=== PATIENT | female | born 1955 | race Caucasian/White ===

== ENCOUNTER 2017-09-23 16:26 | Emergency (ER) | payer MEDICARE ==
[~2017-09-23] VITALS: Ht 160 cm; Wt 117.9 kg
[2017-09-23 16:38] VITALS: BP 118/76; PULSE 82; RESP 16; TEMP 97.5; O2SAT 96
[2017-09-23] MEDS ORDERED: JANT2.5T PO (17:05)
[2017-09-23] MEDS ORDERED: JANT5TAB PO (17:05)
[2017-09-23] MEDS ORDERED: LISI10TA3 PO (17:06)
[2017-09-23] MEDS ORDERED: SODIUM CHLORIDE 0.9% FLUSH 10 ML FLUSH IVF PRN (17:15)
[2017-09-23] MEDS ORDERED: MECLIZINE HCL 25 MG TAB PO ONE (17:15)
[2017-09-23] MEDS ORDERED: ONDANSETRON HCL 4 MG/2 ML VIAL IVP ONE (17:15)
[2017-09-23 17:33] VITALS: RESP 16; O2SAT 97
[2017-09-23 17:47] LABS: AUTOMATED NEUTROPHIL # 7.4 TH/MM3 (1.8-7.7); BASOPHIL # 0.1 TH/MM3 (0-0.2); BASOPHIL % 0.9 % (0.0-2.0); EOSINOPHIL # 0.3 TH/MM3 (0-0.4); EOSINOPHIL % 2.8 % (0.0-4.0); HEMOGLOBIN 14.6 GM/DL (11.6-15.3); LYMPH % 21.2 % (9.0-44.0); LYMPHOCYTE # 2.4 TH/MM3 (1.0-4.8); MEAN CELL VOLUME 82.1 FL (80.0-100.0); MEAN CORPUSCULAR HEMOGLOBIN 26.7 PG (27.0-34.0); MEAN CORPUSCULAR HGB CONC 32.5 % (32.0-36.0); MEAN PLATELET VOLUME 7.7 FL (7.0-11.0); MONO % 8.4 % (0.0-8.0); MONOCYTE # 0.9 TH/MM3 (0-0.9); NEUT % 66.7 % (16.0-70.0); PLATELET COUNT 330 TH/MM3 (150-450); RED BLOOD COUNT 5.48 MIL/MM3 (4.00-5.30); RED CELL DISTRIBUTION WIDTH 13.1 % (11.6-17.2); WHITE BLOOD COUNT 11.1 TH/MM3 (4.0-11.0)
[2017-09-23 17:48] LABS: CHLORIDE 108 MEQ/L (98-107); SODIUM (NA) 140 MEQ/L (136-145)
[2017-09-23 17:51] LABS: ALBUMIN 3.3 GM/DL (3.4-5.0); BICARBONATE 26.8 MEQ/L (21.0-32.0); CALCIUM 8.9 MG/DL (8.5-10.1); GLUCOSE,RANDOM 91 MG/DL (74-106); INTERNATIONAL NORMALIZED RATIO 1.3 RATIO; PROTHROMBIN TIME - PATIENT 12.8 SEC (9.8-11.6)
[2017-09-23 17:52] LABS: BLOOD UREA NITROGEN 14 MG/DL (7-18)
[2017-09-23 17:54] LABS: ALT (GPT) 22 U/L (10-53)
[2017-09-23 17:55] LABS: AST (GOT) 19 U/L (15-37); CREATININE 0.77 MG/DL (0.50-1.00); GLOMERULAR FILTRATION RATE 76 ML/MIN (>89)
[2017-09-23 17:56] LABS: TOTAL BILIRUBIN ADULT 0.1 MG/DL (0.2-1.0); TOTAL PROTEIN 7.4 GM/DL (6.4-8.2)
[2017-09-23 17:57] LABS: ALKALINE PHOSPHATASE 100 U/L (45-117)
[2017-09-23 17:59] LABS: TROPONIN I LESS THAN 0.02 NG/ML (0.02-0.05)
--- NOTE | 2017-09-23 18:20 | RADRPT ---
EXAM DATE/TIME: 09/23/2017 18:01 [place] COMPARISON: No previous studies available for comparison. INDICATIONS : Dizziness. Fall. Right occipital pain. RADIATION DOSE: 57.07 CTDIvol (mGy) MEDICAL HISTORY : Hypertension. Gastroesophageal reflux disease. Anticoagulant therapy. SURGICAL HISTORY : Femoral bypass. ENCOUNTER: Initial ACUITY: 1 day PAIN SCALE: 5/10 LOCATION: Right occipital TECHNIQUE: Multiple contiguous axial images were obtained of the head. Using automated exposure control and adj ustment of the mA and/or kV according to patient size, radiation dose was kept as low as reasonably a chievable to obtain optimal diagnostic quality images. DICOM format image data is available electro nically for review and comparison. FINDINGS: CEREBRUM: The ventricles are normal for age. No evidence of midline shift, mass lesion, hemorrhage or acute in farction. No extra-axial fluid collections are seen. POSTERIOR FOSSA: The cerebellum and brainstem are intact. The 4th ventricle is midline. The cerebellopontine angle i s unremarkable. EXTRACRANIAL: The visualized portion of the orbits is intact. SKULL: The calvaria is intact. No evidence of skull fracture. CONCLUSION: No acute intracranial abnormality. Pablo Kumar MD on September 23, 2017 at 18:17 Board Certified Radiologist. This report was verified electronically.
[2017-09-23] MEDS ORDERED: MECL-62 PO (18:38)
[2017-09-23] MEDS ORDERED: ZOFR4TAB3 SL (18:38)
--- NOTE | 2017-09-23 18:39 | PD ---
HPI Chief Complaint: Head Injury Time Seen by Provider: 16:48 Travel History International Travel<30 days: No Contact w/Intl Traveler<30days: No Traveled to known affect area: No History of Present Illness HPI Patient is a 61-year-old female who comes in complaining of dizziness. She says Saturday she was cleaning the bathroom when she slipped and fell backwards onto her head. She denies any loss of consciousness. She says since then she has been feeling very dizzy. She describes it as an unsteadiness on her feet. She says it did get a little bit better Saturday and Saturday, got worse again today. She does take Coumadin for factor V Leiden disease. She says she did not take it Saturday and Saturday because she was worried after hitting her head. She did take a dose this morning and then the dizziness got worse. She says she had an episode of vertigo several years ago, but does not really remember how it felt. She denies chest pain or shortness of breath. She denies fever chills. Severity is mild to moderate. PFSH Past Medical History Hx Anticoagulant Therapy: Yes Diminished Hearing: No GERD: Yes Hypertension: Yes Medical other: Yes (factor 5) Musculoskeletal: Yes (bursitis) Immunizations Current: Yes Tetanus Vaccination: Unknown Influenza Vaccination: No ?: Not Past Surgical History Other Surgery: Yes (stents left leg breast reduction femoral bypass) Social History Alcohol Use: Yes Tobacco Use: No Substance Use: No Allergies-Medications (Allergen,Severity, Reaction): Coded Allergies: Iodinated Contrast- Oral and IV Dye (Verified Allergy, Severe, 09/23/17) enoxaparin (Verified Allergy, Severe, 09/23/17) spasms Tetanus Vaccines and Toxoid (Verified Allergy, Unknown, 09/23/17) cefadroxil (Verified Allergy, Unknown, rash, 09/23/17) dicloxacillin (Verified Allergy, Unknown, rash, 09/23/17) epinephrine (Verified Allergy, Unknown, 09/23/17) Reported Meds & Prescriptions Reported Meds & Active Scripts Active Reported Lisinopril 10 Mg Tab 10 Mg PO DAILY Jantoven (Warfarin) 2.5 Mg Tab 2.5 Mg PO QOD Jantoven (Warfarin) 5 Mg Tab 5 Mg PO QOD Review of Systems Except as stated in HPI: all other systems reviewed are Neg General / Constitutional: No: Fever, Chills Eyes: No: Blurred Vision HENT: Positive: Lightheadedness, No: Headaches Cardiovascular: No: Chest Pain or Discomfort Respiratory: No: Shortness of Breath Gastrointestinal: No: Nausea, Vomiting Musculoskeletal: No: Myalgias, Edema Skin: No Rash, No Change in Pigmentation Neurologic: Positive: Dizziness Physical Exam Narrative GENERAL: Awake and alert, no acute distress. SKIN: Focused skin assessment warm/dry. HEAD: Atraumatic. Normocephalic. EYES: Pupils equal and round and reactive. No scleral icterus. Extraocular movements intact. ENT: Mucous membranes pink and moist. NECK: Trachea midline. No JVD. No cervical spine tenderness. CARDIOVASCULAR: Regular rate and rhythm. No murmur appreciated. RESPIRATORY: No accessory muscle use. Clear to auscultation. Breath sounds equal bilaterally. GASTROINTESTINAL: Abdomen soft, non-tender, nondistended. MUSCULOSKELETAL: No obvious deformities. No clubbing. No cyanosis. No edema. NEUROLOGICAL: Awake and alert. No obvious cranial nerve deficits. Motor grossly within normal limits. Normal speech. PSYCHIATRIC: Appropriate mood and affect; insight and judgment normal. Data Data Last Documented VS Vital Signs Date Time Temp Pulse Resp B/P (MAP) Pulse Ox O2 Delivery O2 Flow Rate FiO2 09/23/17 17:33 16 97 Room Air 09/23/17 16:38 97.5 82 118/76 (90) Orders Orders Electrocardiogram (09/23/17 17:06) Complete Blood Count With Diff (09/23/17 17:06) Comprehensive Metabolic Panel (09/23/17 17:06) Troponin I (09/23/17 17:06) Act Partial Throm Time (Ptt) (09/23/17 17:06) Prothrombin Time / Inr (Pt) (09/23/17 17:06) Ct Brain W/O Iv Contrast(Rout) (09/23/17 17:06) Ecg Monitoring (09/23/17 17:06) Iv Access Insert/Monitor (09/23/17 17:06) Oximetry (09/23/17 17:06) Meclizine (Antivert) (09/23/17 17:15) Ondansetron Inj (Zofran Inj) (09/23/17 17:15) Sodium Chloride 0.9% Flush (Ns Flush) (09/23/17 17:15) Labs Laboratory Tests Test 09/23/17 17:20 White Blood Count 11.1 TH/MM3 Red Blood Count 5.48 MIL/MM3 Hemoglobin 14.6 GM/DL Hematocrit 45.0 % Mean Corpuscular Volume 82.1 FL Mean Corpuscular Hemoglobin 26.7 PG Mean Corpuscular Hemoglobin Concent 32.5 % Red Cell Distribution Width 13.1 % Platelet Count 330 TH/MM3 Mean Platelet Volume 7.7 FL Neutrophils (%) (Auto) 66.7 % Lymphocytes (%) (Auto) 21.2 % Monocytes (%) (Auto) 8.4 % Eosinophils (%) (Auto) 2.8 % Basophils (%) (Auto) 0.9 % Neutrophils # (Auto) 7.4 TH/MM3 Lymphocytes # (Auto) 2.4 TH/MM3 Monocytes # (Auto) 0.9 TH/MM3 Eosinophils # (Auto) 0.3 TH/MM3 Basophils # (Auto) 0.1 TH/MM3 CBC Comment DIFF FINAL Differential Comment Prothrombin Time 12.8 SEC Prothromb Time International Ratio 1.3 RATIO Activated Partial Thromboplast Time 28.6 SEC Blood Urea Nitrogen 14 MG/DL Creatinine 0.77 MG/DL Random Glucose 91 MG/DL Total Protein 7.4 GM/DL Albumin 3.3 GM/DL Calcium Level 8.9 MG/DL Alkaline Phosphatase 100 U/L Aspartate Amino Transf (AST/SGOT) 19 U/L Alanine Aminotransferase (ALT/SGPT) 22 U/L Total Bilirubin 0.1 MG/DL Sodium Level 140 MEQ/L Potassium Level 4.1 MEQ/L Chloride Level 108 MEQ/L Carbon Dioxide Level 26.8 MEQ/L Anion Gap 5 MEQ/L Estimat Glomerular Filtration Rate 76 ML/MIN Troponin I LESS THAN 0.02 NG/ML MDM Medical Decision Making Medical Screen Exam Complete: Yes Emergency Medical Condition: Yes Interpretation(s) ECG shows normal sinus rhythm at a rate of 83, no ST elevation or depression, normal intervals Differential Diagnosis Vertigo versus ICH versus concussion versus electrolyte abnormality versus dehydration Narrative Course Patient is a 61-year-old female who comes in complaining of dizziness. Exam shows no neurologic abnormalities. IV established, labs sent. Labs show no acute abnormalities. CT head performed shows no acute abnormalities. Last [address] 09/23/17 [id number] Signed Impressions: Service Date/Time: Saturday, September 23, 2017 18:01 - CONCLUSION: No acute intracranial abnormality. Pablo Kumar MD Patient given Zofran and meclizine. She says she is feeling better. She will be discharged with prescriptions from meclizine and Zofran. Advised to follow- up with her doctor. Advised to drink plenty of fluids. Advised return anytime for any worsening symptoms. Diagnosis Primary Impression: Dizziness Patient Instructions: Dizziness (ED), General Instructions Additional Instructions: Take meclizine as needed for dizziness and Zofran as needed for nausea. Follow- up with your doctor. Return to the ED as needed for any worsening symptoms. Scripts Meclizine (Meclizine) 25 Mg Tab 25 MG PO TID Y for VERTIGO, #15 TAB 0 Refills Prov: Cesilia Pollock MD 09/23/17 Ondansetron Odt (Zofran Odt) 4 Mg Tab 4 MG SL Q6HR Y for Nausea/Vomiting, #12 TAB 0 Refills Prov: Cesilia Pollock MD 09/23/17 Disposition: DISCHARGE HOME Condition: Stable Cesilia Pollock MD Sep 23, 2017 18:39
[2017-09-23 18:47] VITALS: BP 201/99
--- NOTE | 2017-09-23 21:57 | EKG ---
Date Performed: 09/23/2017 Time Performed: 17:14:59 PTAGE: 61 years EKG: Sinus rhythm NORMAL ECG NO PREVIOUS TRACING DOCTOR: Maxwell Echevarria Interpretating Date/Time 09/23/2017 21:55:42
== END 2017-09-23 18:49 | disposition home or self-care (01) ==
LOC: PHEFT 16:26
DX: R42 Dizziness and giddiness (principal); D68.51 Activated protein C resistance; K21.9 Gastro-esophageal reflux disease without esophagitis; I10 Essential (primary) hypertension; Z79.899 Other long term (current) drug therapy; Z88.8 Allergy status to other drugs, medicaments and biological substances
CPT/HCPCS: 70450; 80053; 84484; 85025; 85610; 85730; 93005; 96372; 99283; J2405